=== PATIENT | male | born 1970 | race Caucasian/White ===

== ENCOUNTER 2016-08-12 09:00 | Outpatient (RCR) ==
--- NOTE | 2016-08-01 13:22 | RS.OPPTDN ---
Subjective Date of Note: 08/01/16 Visit #: 7 Date of Evaluation: 07/18/16 Payer Source: Insurance Treatment Diagnosis: Neck pain, left UE radiating pain, cervical disc deg. Current Subjective/complaints:: Patient reports continued progress with treatment. Reports a low pain rating today, and radicular symptoms have continued to localize in the left shoulder. Pain Assessment - Pain Description Pain Location: left side of neck and left UE Pain Description: shooting Current Pain Intensity: rates pain down to 2/10 - Treatment Modality: Ultrasound Parameters/Method Applied: [id number] at 1.5w/cm2 to the cervical paraspinals with focus on the left side following traction. Patient in sitting. Patient Position: Sitting - Heat/Cryotherapy Treatment: Hot Pack ([id number] to the cervical spine prior to traction. Patient in supine. ) - Traction Treatment Method: Mechanical, Intermittent, Cervical Patient Position: Supine Amount of Force Applied: 21-22# Hold Time: 35sec Rest Time: 5sec Duration of treatment: 20mins Interventions - Exercise/Activities/Manual Therapy Exercises/Activities: Discussed HEP. Manual Therapy: NA HOME EXERCISE PROGRAM: Isometric cervical retraction, scapular retraction, cervical lateral flexion stretch, doorway pectoralis stretch, and blue theraband for scapular retraction. - Charges Total Direct Minutes: 12mins Total Treatment Time: 52mins Procedures billed for this date of service:: HP, [place] mechancial, [place] Assessment: Patient continues to respond well to traction and HEP. He has been able to progress daily activities without aggravating symptoms. Patient Education: Body/Joint mechanics, Home Exercise Program, Activity Modification Patient demonstrates compliance with HEP?: Yes Short Term Goals Goal #1: Muscle tone in upper traps decreased to minimal. Goal to be met by: 08/01/16 Progress towards Goal:: Progressing Goal #2: Left radiating symptoms localized to left upper arm. Goal to be met by: 08/01/16 (100%) Progress towards Goal:: Met Goal #3: Pt independent and compliant with basic HEP. Goal to be met by: 08/01/16 (100%) Progress towards Goal:: Met Goal #4: Pt to demonstrate improved postural awareness. Goal to be met by: 08/01/16 (100%) Progress towards Goal:: Met Shelter Goals Goal #1: Pt knows to cont. HEP to maintain functional status at discharge. Goal to be met by: 08/22/16 Progress towards goal: Progressing Goal #2: Neck Disability Index score improved to 8. Goal to be met by: 08/22/16 Goal #3: Pt able to perform all ADL's at home and work w/o neck or LUE symptoms. Goal to be met by: 08/22/16 (75%) Progress towards goal: Progressing Goal #4: Patient to demonstrate good postural awareness. Goal to be met by: 08/22/16 (80%) Progress towards goal: Progressing Plan PLAN OF CARE EXPIRES ON:: 08/22/16 ORDER # VISITS AND/OR THROUGH DATE: 08/22/16 PLAN: Continue Plan of Care (Progress traction and postural exercise to reduce symptoms and increase functional activity level.)
--- NOTE | 2016-08-03 14:17 | RS.OPPTDN ---
Subjective Date of Note: 08/03/16 Visit #: 8 Date of Evaluation: 07/18/16 Payer Source: Insurance Treatment Diagnosis: Neck pain, left UE radiating pain, cervical disc deg. Current Subjective/complaints:: Patient reports continued progress with treatment. States radicular symptoms remain localized into traps and superior shoulder. 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 Pain Assessment - Pain Description Pain Location: left side of neck and left UE Pain Description: shooting Current Pain Intensity: neck pain 3/10 last few days Other Comments regarding Pain:: Radicular symptoms continue to be localized at the superior shoulder joint and distal traps. - Treatment Modality: Ultrasound Parameters/Method Applied: [id number] at 1.5w/cm2 to the bilateral cervicsal paraspinals with focus on left and left trap trigger point. Patient in sitting. Patient Position: Sitting - Heat/Cryotherapy Treatment: Hot Pack ([id number] to the cervical spine prior to TX and US. Patient in sitting. ) - Traction Treatment Method: Mechanical, Intermittent, Cervical Patient Position: Supine Amount of Force Applied: 22-23# Hold Time: 35sec Rest Time: 5sec Duration of treatment: 20mins Interventions - Exercise/Activities/Manual Therapy Exercises/Activities: No new additions Manual Therapy: NA HOME EXERCISE PROGRAM: Isometric cervical retraction, scapular retraction, cervical lateral flexion stretch, doorway pectoralis stretch, and blue theraband for scapular retraction. - Charges Total Direct Minutes: 14mins Total Treatment Time: 54mins Procedures billed for this date of service:: HP, [place], [place] mechanical Assessment: Patient continues to repond to treatment. Patient Education: Home Exercise Program Patient demonstrates compliance with HEP?: Yes Short Term Goals Goal #1: Muscle tone in upper traps decreased to minimal. Goal to be met by: 08/01/16 (70%) Progress towards Goal:: Progressing Goal #2: Left radiating symptoms localized to left upper arm. Goal to be met by: 08/01/16 (100%) Progress towards Goal:: Met Goal #3: Pt independent and compliant with basic HEP. Goal to be met by: 08/01/16 (100%) Progress towards Goal:: Met Goal #4: Pt to demonstrate improved postural awareness. 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 HEP to maintain functional status at discharge. Goal to be met by: 08/22/16 Progress towards goal: Progressing Goal #2: Neck Disability Index score improved to 8. Goal to be met by: 08/22/16 Goal #3: Pt able to perform all ADL's at home and work w/o neck or LUE symptoms. Goal to be met by: 08/22/16 (75%) Progress towards goal: Progressing Goal #4: Patient to demonstrate good postural awareness. Goal to be met by: 08/22/16 (100%) Progress towards goal: Met Plan PLAN OF CARE EXPIRES ON:: 08/22/16 ORDER # VISITS AND/OR THROUGH DATE: 08/22/16 PLAN: Continue Plan of Care
--- NOTE | 2016-08-05 10:19 | RS.OPPTDN ---
Subjective Date of Note: 08/05/16 Visit #: 9 Date of Evaluation: 07/18/16 Payer Source: Insurance Treatment Diagnosis: Neck pain, left UE radiating pain, cervical disc deg. 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 Reports pain goes to left distal traps above shoulder joint. Pain Assessment - Pain Description Pain Location: left side of neck and left UE Pain Description: shooting Current Pain Intensity: neck pain 10/07 - Treatment Modality: Ultrasound Parameters/Method Applied: [id number] at 1.5w/cm2 to the cervical paraspinals with focus on left side and into left traps. Patient in sitting. Patient Position: Sitting - Heat/Cryotherapy Treatment: Hot Pack ([id number] to the cervical spine prior to TX and US. Patient in sitting. ) - Traction Treatment Method: Mechanical, Intermittent, Cervical Patient Position: Supine Amount of Force Applied: 22# Hold Time: 35sec Rest Time: 5sec Duration of treatment: 20mins Interventions - Exercise/Activities/Manual Therapy Exercises/Activities: No new additions Manual Therapy: NA HOME EXERCISE PROGRAM: Isometric cervical retraction, scapular retraction, cervical lateral flexion stretch, doorway pectoralis stretch, and blue theraband for scapular retraction. - Charges Total Direct Minutes: 12mins Total Treatment Time: 47mins Procedures billed for this date of service:: HP, [place] mechanical, US Assessment: Patient continues to respond well to treatment. Patient demonstrates compliance with HEP?: Yes Short Term Goals Goal #1: Muscle tone in upper traps decreased to minimal. Goal to be met by: 08/01/16 (75%) Progress towards Goal:: Progressing Goal #2: Left radiating symptoms localized to left upper arm. Goal to be met by: 08/01/16 (100%) Progress towards Goal:: Met Goal #3: Pt independent and compliant with basic HEP. Goal to be met by: 08/01/16 (100%) Progress towards Goal:: Met Goal #4: Pt to demonstrate improved postural awareness. 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 HEP to maintain functional status at discharge. Goal to be met by: 08/22/16 Progress towards goal: Progressing Goal #2: Neck Disability Index score improved to 8. Goal to be met by: 08/22/16 Goal #3: Pt able to perform all ADL's at home and work w/o neck or LUE symptoms. Goal to be met by: 08/22/16 (80%) Progress towards goal: Progressing Goal #4: Patient to demonstrate good postural awareness. Goal to be met by: 08/22/16 (100%) Progress towards goal: Met Plan PLAN OF CARE EXPIRES ON:: 08/22/16 ORDER # VISITS AND/OR THROUGH DATE: 08/22/16 PLAN: Continue Plan of Care
--- NOTE | 2016-08-08 10:39 | RS.OPPTDN ---
Subjective Date of Note: 08/08/16 Visit #: 10 Date of Evaluation: 07/18/16 Payer Source: Insurance Treatment Diagnosis: Neck pain, left UE radiating pain, cervical disc deg. Current Subjective/complaints:: Patient says traction is helping and his pain is lessening. Reports he feels better when he leaves. Pain Assessment - Pain Description Pain Location: left side of neck and left UE Pain Description: shooting Current Pain Intensity: neck pain 10/07 - Treatment Modality: Ultrasound Parameters/Method Applied: continuous @ 1.5 w/cm2 x 12 mins mostly to the L UT AFTER traction Patient Position: Sitting - Heat/Cryotherapy Treatment: Hot Pack (cervical in sitting x 20 mins) - Traction Treatment Method: Mechanical, Intermittent, Cervical Patient Position: Supine Amount of Force Applied: 23 Hold Time: 35 Rest Time: 5 Duration of treatment: 20 Traction Treatment Comment: 2 steps Interventions - Exercise/Activities/Manual Therapy Exercises/Activities: No new additions Manual Therapy: NA HOME EXERCISE PROGRAM: Isometric cervical retraction, scapular retraction, cervical lateral flexion stretch, doorway pectoralis stretch, and blue theraband for scapular retraction. 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 He expresses satisfaction with PT results. Patient Education: Education of diagnosis, Body/Joint mechanics, Home Exercise Program, Home Safety, Activity Modification, Education of Plan of Care Patient demonstrates compliance with HEP?: Yes Short Term Goals Goal #1: Muscle tone in upper traps decreased to minimal. Goal to be met by: 08/01/16 (75%) Progress towards Goal:: Progressing Goal #2: Left radiating symptoms localized to left upper arm. Goal to be met by: 08/01/16 (100%) Progress towards Goal:: Met Goal #3: Pt independent and compliant with basic HEP. Goal to be met by: 08/01/16 (100%) Progress towards Goal:: Met Goal #4: Pt to demonstrate improved postural awareness. Goal to be met by: 08/01/16 (100%) Progress towards Goal:: Met Construction Scheduler Goals Goal #1: Pt knows to cont. HEP to maintain functional status at discharge. Goal to be met by: 08/22/16 Progress towards goal: Progressing Goal #2: Neck Disability Index score improved to 8. Goal to be met by: 08/22/16 Goal #3: Pt able to perform all ADL's at home and work w/o neck or LUE symptoms. Goal to be met by: 08/22/16 (80%) Progress towards goal: Progressing Goal #4: Patient to demonstrate good postural awareness. Goal to be met by: 08/22/16 (100%) Progress towards goal: Met Plan PLAN OF CARE EXPIRES ON:: 08/22/16 ORDER # VISITS AND/OR THROUGH DATE: 08/22/16 PLAN: Continue Plan of Care (progressing traction)
--- NOTE | 2016-08-12 10:25 | RS.OPPTDN ---
Subjective Date of Note: 08/12/16 Visit #: 11 Date of Evaluation: 07/18/16 Payer Source: Insurance Treatment Diagnosis: Neck pain, left UE radiating pain, cervical disc deg. Current Subjective/complaints:: Patient reports he has progressed well with treatment. States left UE symptoms have localized into neck and upper traps. 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 States he will continue HEP after discharge. Pain Assessment - Pain Description Pain Location: left side of neck and left UE Pain Description: shooting Current Pain Intensity: neck pain 09/09 - Treatment Modality: Ultrasound Parameters/Method Applied: [id number] at 1.5w/cm2 to the bilateral cervical paraspinals with focus on the left. Patient in sitting. Patient Position: Sitting - Heat/Cryotherapy Treatment: Hot Pack ([id number] to cervical paraspinals prior to TX) - Traction Treatment Method: Mechanical, Intermittent, Cervical Patient Position: Supine Amount of Force Applied: 22-23# Hold Time: 35sec Rest Time: 5sec Duration of treatment: 20mins Interventions - Exercise/Activities/Manual Therapy Exercises/Activities: Reviewed all education of dx, posture, and HEP. Also discussed home traction units if patient has an exacerbation of symptoms. Total minutes of Exercise: 5mins Manual Therapy: NA HOME EXERCISE PROGRAM: Isometric cervical retraction, scapular retraction, cervical lateral flexion stretch, doorway pectoralis stretch, and blue theraband for scapular retraction. - Charges Total Direct Minutes: 15mins Total Treatment Time: 55mins Procedures billed for this date of service:: HP, [place] mechanical, [place] Assessment: Patient has responded well to treatment and will continue HEP after discharge. Patient Education: Education of diagnosis, Body/Joint mechanics, Home Exercise Program, Education of Plan of Care Patient demonstrates compliance with HEP?: Yes Short Term Goals Goal #1: Muscle tone in upper traps decreased to minimal. Goal to be met by: 08/01/16 (100%) Progress towards Goal:: Met Goal #2: Left radiating symptoms localized to left upper arm. Goal to be met by: 08/01/16 (100%) Progress towards Goal:: Met Goal #3: Pt independent and compliant with basic HEP. Goal to be met by: 08/01/16 (100%) Progress towards Goal:: Met Goal #4: Pt to demonstrate improved postural awareness. Goal to be met by: 08/01/16 (100%) Progress towards Goal:: Met Multi Sensor Operator Goals Goal #1: Pt knows to cont. HEP to maintain functional status at discharge. Goal to be met by: 08/22/16 (100%) Progress towards goal: Met Goal #2: Neck Disability Index score improved to 8. Goal to be met by: 08/22/16 Goal #3: Pt able to perform all ADL's at home and work w/o neck or LUE symptoms. Goal to be met by: 08/22/16 (80%) Progress towards goal: Progressing Goal #4: Patient to demonstrate good postural awareness. Goal to be met by: 08/22/16 (100%) Progress towards goal: Met Plan PLAN OF CARE EXPIRES ON:: 08/22/16 ORDER # VISITS AND/OR THROUGH DATE: 08/22/16 PLAN: Plan for Discharge
--- NOTE | 2016-08-12 16:27 | RS.QUICKDC ---
Discharge from PT Date of Discharge: 08/12/16 Number of Visits: 11 Reason for Discharge: Patient progressed well and benefitted from treatment. He met 6 of 8 treatment goals. He reported localization of radicular symptoms and was independent with HEP. Patient agreed he was ready for discahrge and will continue HEP. Please refer to last Daily Note for specifics of treatment and goals. Discharge with HEP.
== END 2016-08-30 ==
PROVIDERS: ATTEND Neurological Surgery
DX: M50.30 Other cervical disc degeneration, unspecified cervical region (principal); M48.02 Spinal stenosis, cervical region; M54.12 Radiculopathy, cervical region